=== PATIENT | male | born 1955 | race African-American/Black ===

== ENCOUNTER → 2016-09-04 | Outpatient (CLI) | payer BC ==
[~2016-09-04] MED LIST: ASPI81TA28 PO; CALCTAB5 PO; CHOL100010 PO; COEN30CA8 PO; DGRI80 INJ; DIPH25CA65 PO; ENAL10TA88 PO; FLM4 PO; FLUT0.15; MULT-506 PO; OMEG10007 PO; SIMV20TA2 PO; TADA10TA PO; VITA100C4 PO
== END | disposition home or self-care (01) ==
LOC: C.LABSPEC 17:00
PROVIDERS: ATTEND Podiatrist Foot & Ankle Surgery
DX: B35.1 Tinea unguium (principal)